=== PATIENT | female | born 1990 | race Caucasian/White ===

== ENCOUNTER 2017-10-04 08:26 | Inpatient (IN) | payer OTHER ==
--- NOTE | 2017-10-04 10:08 | PCM.LDHP ---
L&D History of Present Illness - General Admit Problem/Dx: Admission Diagnosis/Problem Admission Diagnosis/Problem 10/04/17 10:17 DATE OF ADMISSION: 10/04/2017 ADMISSION DIAGNOSES: A 39 and 0/7th week intrauterine , elective induction of labor HISTORY OF PRESENT ILLNESS: This patient is a 26 year old, 2, para 1-0-0-1 female who was admitted at 39 and 0/7ths weeks gestational age with an JENNIFER of 10/11/2017 for elective induction of labor. She lives in [place], [place] and desires induction secondary to distance from hospital and weather concerns. ONCOLOGIST HISTORY: 2, para 1-0-0-1. The patient has an JENNIFER of 10/11/2017 based on a definite LMP of 12/27/2016 and confirmed by early ultrasound dating performed at 9 weeks gestational age. Patient was not using any control at the time of conception and experienced regular periods prior to . A second ultrasound was performed on 06/07/2017 at 21 and 4/7ths weeks which was consistent with previously set JENNIFER. The patient was first seen for care on 03/08/2017 at 10 and 0/7ths weeks gestational age. She was seen on a regular basis throughout the duration of the . Her weight gain was approximately 34 pounds, starting with a pregravid weight of 199 pounds and with a recorded weight of 232.6 pounds at the last visit. Her vital signs have remained stable throughout the and fundal height growth has been appropriate. The patient declined genetic testing. She plans on . She is group B Strep negative. PAST OBSTETRIC HISTORY: Female infant born on 04/15/2017 at 39 and 4/7ths weeks gestational age after 11 hours of labor - 7 pounds, 3 ounces - via normal spontaneous vaginal delivery with the use of an epidural. Child's name is Cathie Ramos. LABORATORY TESTING: Initial testing shows blood to be B positive with a negative antibody screen. Hemoglobin at first visit was 15.0 g/dL and platelets at 278,000. Rubella titer showed immunity. RPR was nonreactive. HIV and Hepatitis B assays were both negative. Chlamydia and gonorrhea assays were both negative. Second trimester testing showed hemoglobin to be 12.8 g/dL and platelets at 292,000. Her 1 hour GGT was normal at 130. Group B Strep screen was negative. Urine analysis was negative. ALLERGIES: No known drug allergies CURRENT MEDICATIONS: 1. vitamins x1 daily 2. Niacin tablets 3. Folic acid capsules PAST MEDICAL HISTORY: 1. Vaginal delivery x1 2. GBS positive in previous 3. Seasonal allergies PAST SURGICAL HISTORY: 1. Tonsillectomy FAMILY HISTORY: Family history is negative aside from a sister with epilepsy and diabetes in a brother and maternal grandfather. No known family history of bleeding, clotting , anesthesia, or disorders. SOCIAL HISTORY: The patient is single. Father of the baby is Gabriella Palafox. They live in [place], [place]. 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 She does not use alcohol, drugs, or tobacco. REVIEW OF SYSTEMS: GENERAL: Patient is doing well. Baby has been active. No concerns at this time. SKIN: Negative. CARDIOVASCULAR: No chest pain or exercise intolerance. RESPIRATORY: No shortness of breath or infectious symptoms. BREASTS: Changes associated with . Patient plans to breastfeed. GASTROINTESTINAL: Negative. GENITOURINARY: Changes associated with . MUSCULOSKELETAL: Negative. NEUROLOGIC: Negative. PHYSICAL EXAMINATION: GENERAL: Patient is a well-developed, well-nourished, pleasant female who appears her stated age and in no acute distress. VITAL SIGNS: Blood pressure on last evaluation in the clinic was 124/72, weight was 232.6 after a weight gain of 34 pounds throughout the . heart rate was 144. Height is 5 feet, 11 inches. SKIN: Warm and dry without lesions. HEENT, NECK, BACK: Within normal limits. CARDIOVASCULAR: Regular rate and rhythm without murmurs. RESPIRATORY: Clear with good breath sounds in all lung stanley. BREASTS: Deferred at this time having been done at initial obstetric visit and found to be normal. ABDOMEN: Protuberant with with a fundal height of 36+ cm. Baby is in vertex presentation by Benji maneuvers. GENITAL: Shows cervix to be 2cm, 80% effaced, very soft, -2 station, and mid- posterior position. EXTREMITIES: Shows trace edema to be present at bilateral lower extremities. NEUROLOGIC: Grossly within normal limits. ASSESSMENT: 1. A 39 and 0/7ths week intrauterine who presents to L and D for elective induction of labor. 2. Rubella titer shows immunity. 3. Group B Strep screen is negative. 4. The patient plans to breastfeed. 5. The patient desires an epidural. PLAN: 1. Artificial rupture of membranes and Pitocin induction of labor. 2. Notify anesthesia for placement of epidural when desired by patient. 3. Support decision. 10/04/17 10:31 - Related Data Allergies/Adverse Reactions: Allergies Allergy/AdvReac Type Severity Reaction Status Date / Time No Known Allergies Allergy Verified 04/15/16 07:58 Home Medications: Home Meds Vit 90/Iron Fum/Folic [ Formula] 1 each PO DAILY 04/15/16 [ History] Past Medical History - Past Health History Medical/Surgical History: Denies Medical/Surgical History Other Respiratory History: hayfever- seasonal ONCOLOGIST History: Reports: - Past Surgical History HEENT Surgical History: Reports: Tonsillectomy Other HEENT Surgeries/Procedures: 2015 Respiratory Surgical History: Reports: None Social & Family History - Family History Family Medical History: Noncontributory - Tobacco Use Smoking Status *Q: Former Smoker Years of Tobacco use: 2 Used Tobacco, but Quit: Yes Month/Year Tobacco Last Used: May - Caffeine Use Caffeine Use: Reports: None - Recreational Drug Use Recreational Drug Use: No H&P Review of Systems - Review of Systems: Review Of Systems: See Below L&D Exam - Exam Exam: See Below - Vital Signs Vital Signs: Last Vital Signs Temp 96.5 F 10/04/17 09:12 Pulse 58 L 10/04/17 09:12 Resp 18 10/04/17 09:12 BP 112/64 10/04/17 09:12 Pulse Ox Problem List Initiated/Reviewed/Updated: Yes
[2017-10-04] MEDS ORDERED: Nalbuphine 20 MG/1 ML Amp IVPUSH PRN (10:21)
[2017-10-04] MEDS ORDERED: Ondansetron 4 MG/2 ML SDV IVPUSH PRN (10:21)
[2017-10-04] MEDS ORDERED: Sodium Chloride 0.9% 10 ML Syringe FLUSH PRN (10:21)
[2017-10-04] MEDS ORDERED: Lidocaine 1% 50 ML MDV INJECT ONE (10:21)
[2017-10-04] MEDS ORDERED: Oxytocin/Lactated Ringers 10 UNIT/1,000 ML BAG IV SCH (10:30)
[2017-10-04] MEDS ORDERED: ePHEDrine 50 MG/ML SDV IVPUSH PRN (12:29)
[2017-10-04] MEDS ORDERED: diphenhydrAMINE 50 MG/ML SDV IVPUSH PRN (12:29)
[2017-10-04] MEDS ORDERED: Bupivacaine/fentaNYL/NS 100 ML Bag EPIDUR SCH (12:30)
[2017-10-04] MEDS: Lactated Ringers 1,000 ML IV SCH ×3 (12:53→18:21)
[2017-10-04] MEDS: fentaNYL 100 MCG/2 ML SDV EPIDUR PRN ×2 (13:38→19:57)
--- NOTE | 2017-10-04 13:44 | PCM.PREANE ---
Preanesthetic Assessment - Anesthesia/Transfusion/Family Hx Anesthesia History: Prior Anesthesia Without Reaction Family History of Anesthesia Reaction: No Transfusion History: No Prior Transfusion(s) - Review of Systems General: No Symptoms Pulmonary: No Symptoms Cardiovascular: No Symptoms Gastrointestinal: No Symptoms Neurological: No Symptoms Other: Reports: None - Physical Assessment Pulse: 63 O2 Sat by Pulse Oximetry: 97 Respiratory Rate: 18 Blood Pressure: 113/72 Temperature: 36.3 C Vital Signs: Last Vital Signs Temp 35.8 C 10/04/17 09:12 Pulse 63 10/04/17 11:09 Resp 18 10/04/17 09:12 BP 113/72 10/04/17 11:09 Pulse Ox Height: 1.8 m Weight: 106.141 kg ASA Class: 2 Mental Status: Alert & Oriented x3 Airway Class: Mallampati = 1 Dentition: Reports: Normal Dentition Thyro-Mental Finger Breadths: 3 Mouth Opening Finger Breadths: 3 ROM/Head Extension: Full Lungs: Clear to Auscultation, Normal Respiratory Effort Cardiovascular: Regular Rate, Regular Rhythm - Lab Values: Laboratory Last Values WBC 8.94 K/mm3 (3.98-10.04) 10/04/17 10:40 RBC 3.84 M/mm3 (3.98-5.22) L 10/04/17 10:40 Hgb 12.5 gm/L (11.2-15.7) 10/04/17 10:40 Hct 36.1 % (34.1-44.9) 10/04/17 10:40 MCV 94.0 fl (79.4-94.8) 10/04/17 10:40 MCH 32.6 pg (25.6-32.2) H 10/04/17 10:40 MCHC 34.6 g/dl (32.2-35.5) 10/04/17 10:40 RDW Std Deviation 41.8 fL (36.4-46.3) 10/04/17 10:40 Plt Count 261 K/mm3 (182-369) 10/04/17 10:40 MPV 10.6 fl (9.4-12.3) 10/04/17 10:40 Neut % (Auto) 66.7 % (34.0-71.1) 10/04/17 10:40 Lymph % (Auto) 23.0 % (19.3-51.7) 10/04/17 10:40 [place] % (Auto) 7.6 % (4.7-12.5) 10/04/17 10:40 Eos % (Auto) 2.3 (0.7-5.8) 10/04/17 10:40 Baso % (Auto) 0.2 % (0.1-1.2) 10/04/17 10:40 Neut # (Auto) 5.95 K/mm3 (1.56-6.13) 10/04/17 10:40 Lymph # (Auto) 2.06 K/mm3 (1.18-3.74) 10/04/17 10:40 [place] # (Auto) 0.68 K/mm3 (0.24-0.36) H 10/04/17 10:40 Eos # (Auto) 0.21 K/mm3 (0.04-0.36) 10/04/17 10:40 Baso # (Auto) 0.02 K/mm3 (0.01-0.08) 10/04/17 10:40 - Allergies Allergies/Adverse Reactions: Allergies Allergy/AdvReac Type Severity Reaction Status Date / Time No Known Allergies Allergy Verified 04/15/16 07:58 - Anesthesia Plan Pre-Op Medication Ordered: None - Acknowledgements Anesthesia Type Planned: Epidural Pt an Appropriate Candidate for the Planned Anesthesia: Yes Alternatives and Risks of Anesthesia Discussed w Pt/Guardian: Yes Pt/Guardian Understands and Agrees with Anesthesia Plan: Yes PreAnesthesia Questionnaire - Past Health History Medical/Surgical History: Denies Medical/Surgical History Other Respiratory History: hayfever- seasonal Gastrointestinal History: Reports: GERD 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 History: Reports: - Past Surgical History HEENT Surgical History: Reports: Tonsillectomy Other HEENT Surgeries/Procedures: 2015 Respiratory Surgical History: Reports: None - SUBSTANCE USE Smoking Status *Q: Former Smoker Second Hand Smoke Exposure: No Recreational Drug Use History: No - HOME MEDS Home Medications: Home Meds Vit 90/Iron Fum/Folic [ Formula] 1 each PO DAILY 04/15/16 [ History] - CURRENT (IN HOUSE) MEDS Current Meds: Current Medications Diphenhydramine HCl (Benadryl) 25 mg IVPUSH Q6H PRN PRN Reason: Itching Ephedrine Sulfate (Ephedrine Sulfate) 5 mg IVPUSH ASDIRECTED PRN PRN Reason: HYPOTENTSION Fentanyl (Sublimaze) 100 mcg EPIDUR Q3H PRN PRN Reason: PAIN Last Admin: 10/04/17 13:38 Dose: 100 mcg Fentanyl/Bupivacaine HCl (Fentanyl/Bupivacaine/Ns 2 Mcg-0.125% 100 Ml) 100 ml EPIDUR ASDIRECTED ANOOP Lactated Ringer's (Ringers, Lactated) 1,000 mls @ 100 mls/hr IV ASDIRECTED ANOOP Last Admin: 10/04/17 12:53 Dose: 999 mls/hr Oxytocin/Lactated Ringer's (Pitocin In Lr 10 Units/1,000 Ml) 10 unit in 1,000 mls @ 12 mls/hr IV TITRATE ANOOP; Protocol Last Admin: 10/04/17 12:54 Dose: 2 munits/min, 12 mls/hr Nalbuphine HCl (Nubain) 10 mg IVPUSH Q2H PRN PRN Reason: Pain (moderate 4-6) Ondansetron HCl (Zofran) 4 mg IVPUSH Q4H PRN PRN Reason: Nausea/Vomiting Sodium Chloride (Saline Flush) 10 ml FLUSH ASDIRECTED PRN PRN Reason: Keep Vein Open Discontinued Medications Lidocaine HCl (Xylocaine 1%) 10 ml INJECT ONETIME ONE Stop: 10/04/17 10:22
[2017-10-04] MEDS ORDERED: Bupivacaine 0.25% 10 ML SDV ONE (16:00)
[2017-10-04] MEDS ORDERED: fentaNYL/Bupivacaine in NS PF 2.5 MCG/ML-0.1% 50 ML Syringe EPIDUR SCH (16:45)
--- NOTE | 2017-10-04 19:55 | PCM.SN ---
- Free Text/Narrative Note: 1932 called to room for c/o pain. Epidural level at T11. Bolus with 2ml of fentanyl, 10ml of .25% bupivacaine VSS epidural level at T6 out of room at 1954
--- NOTE | 2017-10-04 20:47 | PCM.SN ---
- Free Text/Narrative Note: Delivery note: Madie is a 26-year-old 2 now para 2002 white female who is admitted on the a.m. of 10/04/2017 for elective induction of labor for distance from the hospital and multiparous status. Nation and underwent official rupture membranes induction initially. After short period time Pitocin was added to facilitate an adequate labor. She slowly progressed and delivered a viable, morris, male with Apgars of 8 and 9, a length of 19.5 inches , a weight of 2960 g (6 pounds 8.4 ounces) in a right occiput anterior position over an intact perineum. The baby delivered at 2021 hrs. baby was placed on mom' s abdomen, cord clamped 2 and cut by the dad. Nose mouth bulb suction. Baby was dried and stimulated. Pitocin was given IV after the baby to facilitate increase in uterine tone and decrease likelihood of uterine bleeding. Cord blood was obtained, the perineum was found to be intact. Very slight very superficial abrasion was noted in the area anterior to the clitoris. This did not show any evidence of anatomic distortion or significant bleeding. No sutures were placed. The placenta delivered in a [place] presentation, appeared intact, complete and was discarded per patient desire. Blood loss was 100 mL. Patient plans to breast-feed. Condition: Good
[2017-10-04] MEDS ORDERED: Docusate Sodium 100 MG Cap PO PRN (20:57)
[2017-10-04] MEDS ORDERED: Lanolin 100% Cream 7 GM Tube TOP PRN (20:57)
[2017-10-04] MEDS ORDERED: Acetaminophen 325 MG Tab PO PRN (20:57)
[2017-10-04] MEDS ORDERED: Benzocaine/Menthol 20%-0.5% Spray 56 GM Canister TOP PRN (20:57)
[2017-10-04] MEDS ORDERED: Witch Hazel Medicated Pads 100/Jar TOP PRN (20:57)
[2017-10-05] MEDS: Ibuprofen 600 MG Tab PO PRN ×3 (04:42→20:12)
--- NOTE | 2017-10-05 09:44 | PCM48HPAN ---
Post Anesthesia Note - EVALUATION WITHIN 48HRS OF ANESTHETIC Vital Signs in Normal Range: Yes Patient Participated in Evaluation: Yes Respiratory Function Stable: Yes Airway Patent: Yes Cardiovascular Function Stable: Yes Hydration Status Stable: Yes Pain Control Satisfactory: Yes Nausea and Vomiting Control Satisfactory: Yes Mental Status Recovered: Yes Pulse Rate: 65 Resp Rate: 16 Temperature: 97.7 F Blood Pressure: 116/60
[2017-10-06 05:37] VITALS: BP 124/67
--- NOTE | 2017-10-06 06:25 | PCM.DCSUM1 ---
Discharge Summary - Hospital Course Free Text/Narrative:: Madie is a 26-year-old 2 now para 2002 white female who is admitted on the a.m. of 10/04/2017 for elective induction of labor for distance from the hospital and multiparous status. Nation and underwent official rupture membranes induction initially. After short period time Pitocin was added to facilitate an adequate labor. She slowly progressed and delivered a viable, morris, male with Apgars of 8 and 9, a length of 19.5 inches, a weight of 2960 g (6 pounds 8.4 ounces) in a right occiput anterior position over an intact perineum. The baby delivered at 2021 hrs. baby was placed on mom' s abdomen, cord clamped 2 and cut by the dad. Nose mouth bulb suction. Baby was dried and stimulated. Pitocin was given IV after the baby to facilitate increase in uterine tone and decrease likelihood of uterine bleeding. Cord blood was obtained, the perineum was found to be intact. Very slight very superficial abrasion was noted in the area anterior to the clitoris. This did not show any evidence of anatomic distortion or significant bleeding. No sutures were placed. The placenta delivered in a [place] presentation, appeared intact, complete and was discarded per patient desire. Blood loss was 100 mL. Patient plans to breast-feed. patient has done well. She has had minimal lochia, is voiding without concerns and is nursing well. She is desiring discharge home. Condition : Good - Discharge Data Discharge Date: 10/06/17 Discharge Disposition: Home, Self-Care 01 Condition: Good - Patient Instructions Diet: Regular Diet as Tolerated (Nursing diet was increased calcium and calories as recommended) Activity: As Tolerated (No intercourse or tampons until bleeding resolves) Driving: Do Not Drive (Do not drive for 2 days ) Showering/Bathing: May Shower (May take a bath) Notify Provider of: Fever, Increased Pain, Swelling and Redness, Nausea and/or Vomiting - Discharge Plan Home Medications: Home Meds Vit 90/Iron Fum/Folic [ Formula] 1 each PO DAILY 04/15/16 [ History] Acetaminophen [Tylenol] 650 mg PO Q4H PRN tablet 10/06/17 [Rx] Ibuprofen [IJD: Ibuprofen] 600 mg PO Q4H PRN tablet 10/06/17 [Rx] Referrals: Aleks Moya MD [Primary Care Provider] - (Return to clinicDr. Moya2 weeks.) - Discharge Summary/Plan Comment DC Time >30 min.: No Discharge Summary/Plan Comment: Discharge instructions: 1. Discharge home 2. Diet, activity and follow-up discussed with patient. Recommend nursing diet with increased calories and calcium. 3. Precautions given concern increased pain, bleeding, temperature, signs/ symptoms of DVT/PE. 4. Medications per home medication was printed, discussed with and given to the patient. 5. Return to clinic-Dr. Moya[facility] in 2 weeks. Diagnosis: Term -delivered Condition: Good - Patient Data Vitals - Most Recent: Last Vital Signs Temp 36.3 C 10/06/17 05:00 Pulse 67 10/05/17 20:00 Resp 16 10/06/17 05:00 BP 124/67 10/06/17 05:00 Pulse Ox 97 10/06/17 05:00 Weight - Most Recent: 106.141 kg I&O - Last 24 hours: Intake & Output 10/05/17 10/05/17 10/06/17 14:59 22:59 06:59 Intake Total 180 Balance 180 Lab Results - Last 24 hrs: Laboratory Results - last 24 hr 10/05/17 Range/Units 05:50 WBC 10.41 H (3.98-10.04) K/mm3 RBC 3.58 L (3.98-5.22) M/mm3 Hgb 11.6 (11.2-15.7) gm/L Hct 33.9 L (34.1-44.9) % MCV 94.7 (79.4-94.8) fl MCH 32.4 H (25.6-32.2) pg MCHC 34.2 (32.2-35.5) g/dl RDW Std Deviation 42.1 (36.4-46.3) fL Plt Count 211 (182-369) K/mm3 MPV 11.4 (9.4-12.3) fl Med Orders - Current: Current Medications Acetaminophen (Tylenol) 650 mg PO Q4H PRN PRN Reason: mild pain or fever Benzocaine/Menthol (Dermoplast Pain Relief [place]) 0 gm TOP ASDIRECTED PRN PRN Reason: Perineal Comfort Measure Last Admin: 10/04/17 23:05 Dose: 1 can Docusate Sodium (Colace) 100 mg PO BID PRN PRN Reason: Constipation Emollient Ointment (Lansinoh Hpa) 0 gm TOP ASDIRECTED PRN PRN Reason: Sore Nipples Ibuprofen (Motrin) 600 mg PO Q4H PRN PRN Reason: Mild pain or fever Last Admin: 10/05/17 20:12 Dose: 600 mg Witch Minda (Tucks) 1 pad TOP ASDIRECTED PRN PRN Reason: Hemorrhoid pain Last Admin: 10/04/17 23:05 Dose: 1 jar Discontinued Medications Diphenhydramine HCl (Benadryl) 25 mg IVPUSH Q6H PRN PRN Reason: Itching Ephedrine Sulfate (Ephedrine Sulfate) 5 mg IVPUSH ASDIRECTED PRN PRN Reason: HYPOTENTSION Fentanyl (Sublimaze) 100 mcg EPIDUR Q3H PRN PRN Reason: PAIN Last Admin: 10/04/17 19:57 Dose: 100 mcg Fentanyl/Bupivacaine HCl (Fentanyl/Bupivacaine/Ns 2 Mcg-0.125% 100 Ml) 100 ml EPIDUR ASDIRECTED ANOOP Fentanyl/Bupivacaine HCl (Fentanyl/Bupivacaine/Ns 2.5 Mcg-0.1% 50 Ml) 50 ml EPIDUR ASDIRECTED ANOOP Lactated Ringer's (Ringers, Lactated) 1,000 mls @ 100 mls/hr IV ASDIRECTED ANOOP Last Admin: 10/04/17 18:21 Dose: 125 mls/hr Oxytocin/Lactated Ringer's (Pitocin In Lr 10 Units/1,000 Ml) 10 unit in 1,000 mls @ 12 mls/hr IV TITRATE ANOOP; Protocol Last Titration: 10/04/17 18:40 Dose: 18 munits/min, 108 mls/hr Lidocaine HCl (Xylocaine 1%) 10 ml INJECT ONETIME ONE Stop: 10/04/17 10:22 Nalbuphine HCl (Nubain) 10 mg IVPUSH Q2H PRN PRN Reason: Pain (moderate 4-6) Ondansetron HCl (Zofran) 4 mg IVPUSH Q4H PRN PRN Reason: Nausea/Vomiting Sodium Chloride (Saline Flush) 10 ml FLUSH ASDIRECTED PRN PRN Reason: Keep Vein Open
[2017-10-06] MEDS: Ibuprofen 600 MG Tab PO PRN (08:51)
== END 2017-10-06 12:30 | disposition home or self-care (01) | DRG 775 ==
LOC: UNDOADMOB 08:26 → JD.OB 08:26 → OBSVTOIN 20:22 → JD.OB 20:25
PROVIDERS: ADMIT Obstetrics & Gynecology; ATTEND Obstetrics & Gynecology
PROC: 10E0XZZ Delivery of Products of Conception, External Approach (ICD-10-PCS; principal; 2017-10-04)
PROC: 10907ZC Drainage of Amniotic Fluid, Therapeutic from Products of Conception, Via Natural or Artificial Opening (ICD-10-PCS; 2017-10-04)
PROC: 3E033VJ Introduction of Other Hormone into Peripheral Vein, Percutaneous Approach (ICD-10-PCS; 2017-10-04)
PROC: 6A550ZT Pheresis of Cord Blood Stem Cells, Single (ICD-10-PCS; 2017-10-04)
PROC: 00HU33Z Insertion of Infusion Device into Spinal Canal, Percutaneous Approach (ICD-10-PCS; 2017-10-04)
PROC: 3E0R3BZ Introduction of Anesthetic Agent into Spinal Canal, Percutaneous Approach (ICD-10-PCS; 2017-10-04)
DX: O80 Encounter for full-term uncomplicated delivery (principal); Z3A.39 39 weeks gestation of pregnancy; Z37.0 Single live birth
CPT/HCPCS: 36415; 51702; 59025; 59409; 85025; 85027; A9270-GY; J2590; J3010; J7120

== ENCOUNTER 2021-01-06 09:51 | Inpatient (IN) | payer BC ==
--- NOTE | 2021-01-06 09:35 | PCM.LDHP ---
L&D History of Present Illness - General Date of Service: 01/06/21 Admit Problem/Dx: Admission Diagnosis/Problem Admission Diagnosis/Problem 01/06/21 09:26 Madie is a 30-year-old 4 para 3-0-0-3 female presently at 39-3/7 weeks gestational age with an JENNIFER of 01/10/2021 admitted on the a.m. of 01/06/2021 for induction of labor. Source of Information: Patient History Limitations: Reports: No Limitations - History of Present Illness Introduction:: Madie is a 30-year-old 4 para 3-0-0-3 female presently at 39-3/7 weeks gestational age with an JENNIFER of 01/10/2021 admitted on the a.m. of 01/06/2021 for induction of labor. The procedure and process of induction of labor, its risk, benefits, limitations and follow-up along with alternatives including allowing for natural onset of labor are all discussed in detail with patient. She appears understand and wishes to proceed. TEAM MEMBER history: Madie is a 4 para 3-0-0-3. She had menarche at approximately age 11. Cycles q. 28 days. Her last menstrual period was certain and started on 04/05/2020. She is not using any control at the time of conception. She has no history of abnormal Pap smears or STIs. Her past obstetric history includes the followin. Female infant born 1020 2015-39-4/7 weeks gestational age11 hours of labor7 pounds 3 [facility]NS[facility] name [facility] Blanche Ramos 2. Male infant born 10/04/2018 at 39 weeks gestational age6 pounds 8 [facility]NS[facility]. Male born 01/25/2001 19-40-1/7 weeks gestational age8 hours of labor8 pounds 6 ouncesNSVDepidural [facility] Maytechild's name is Isauro Pratt course: Patient is seen for first visit at 11 weeks and 3 days. She had an ultrasound earlier than that on 05/26/2020 which placed her at 7 weeks and 4 days which is consistent with her LMP dating. She had 2 other ultrasounds during the course of at 12 and 22 weeks and these were correlated with her LMP and first ultrasound dating well. She was seen on a very regular basis during the course of the . Her weight gain was from 210.6 pounds up to 240.3 pounds for approximately a 30 pound increase. Her vital signs remained stable throughout the coursespecifically blood pressure was unremarkable. Fundal height growth was appropriate with last fundal height on 12/31/2020 at 40 cm. Baby in vertex presentation. Patient is rubella immune. She had her hepatitis B immunizations in 2002 and her meningococcal immunizations in 2006. Patient plans to breast-feed. Prequel done early in was negative. [place] depression screen score on 09/30/2020 was 7/30. She is group B strep negative. She desires an epidural in labor. Laboratory testing : Blood is be positive with a negative antibody screen. First hemoglobin is 14.0 g/dL and platelets are 292,000. Her Pap smear is unremarkable. She is rubella immune. RPR is nonreactive. Urine culture was negative. Hepatitis B surface antigen and HIV assays along with chl amydia and gonorrhea tests were negative. Her HCV antibody was also negative. Second trimester labs showed a hemoglobin of 12.1 g/dL and platelets of 266,000. Her 1 hour GTT was normal at 121. RPR done on 09/30/2020 was negative. Group B strep screen is negative. Allergies: None Medications: 1. vitamins daily 2. Folic acid caps daily Past medical history: 1. x4 2. Environmental allergies Past surgical history: 1. Tonsillectomy Family history: Mother is alive at age 53 and is well. Father is alive and well at age 55. 2 brothers one with type 1 diabetes 1 healthy. The other sibling is a sister with a seizure disorder. No , clotting, bleeding, anesthesia problems noted. 1 sister did have twins that delivered at age 30 weeks gestation. Mother does have hyperthyroidism and 1 sister with hyperthyroidism. Social history: Patient is single. 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 She lives in [place], [place]. Her significant other is Gabriella Jaime. She does not use any significance alcohol, drugs or tobacco. Review of systems: In general patient has no complaints. Patient reports good activity. No significant contractions. Skin: Negative Lungs: No infectious symptoms or shortness of breath Cardiovascular: No chest pain or exercise intolerance Breasts: No lumps, changes in size, pain, dimpling, discharge or axillary or supraclavicular concerns. GI: Negative : Body habitus changes consistent with . Musculoskeletal: Negative Neurological: Negative Physical exam: In general the patient is well-developed, well-nourished, pleasant female of stated age in no acute distress. On last evaluation clinic on 12/31/2020 blood pressure was 122/72. Weight was 240.3 pounds. First weight was 210.6 pounds. Height is 5 feet 11. Body mass index is 27.9. Skin is warm dry without lesions. HEENT, neck and back within normal limits. Lungs are clear with good breath sounds in all lung stanley. Cardiovascular exam shows regular and rhythm without murmurs. Breast exam is deferred at this time having been done at first cally visit and found to be normal is not repeated at this point. Patient does plan to breast- feed. Abdomen is gravid with last fundal height at last visit at 40 cm. Baby in vertex presentation. Genital per digital evaluation on the last check in clinic showed cervix to be a tight 2 cm, 50% effaced, soft, -3 station, mid position. Extremities and neurological exam are grossly within normal limits. - Related Data Allergies/Adverse Reactions: Allergies Allergy/AdvReac Type Severity Reaction Status Date / Time No Known Allergies Allergy Verified 04/15/16 07:58 Home Medications: Home Meds Vit 90/Iron Fum/Folic [ Formula] 1 each PO DAILY 04/15/16 [History] Acetaminophen [Tylenol] 650 mg PO Q4H PRN tablet 01/25/19 [Rx] Ibuprofen [Motrin] 600 mg PO Q4H PRN tablet 01/25/19 [Rx] Past Medical History - Past Health History Medical/Surgical History: Denies Medical/Surgical History HEENT History: Reports: Allergic Rhinitis Other Respiratory History: hayfever- seasonal Gastrointestinal History: Reports: GERD TEAM MEMBER History: Reports: - Past Surgical History HEENT Surgical History: Reports: Tonsillectomy Other HEENT Surgeries/Procedures: 2015 Respiratory Surgical History: Reports: None Social & Family History - Family History Family Medical History: No Pertinent Family History - Caffeine Use Caffeine Use: Reports: None H&P Review of Systems - Review of Systems: Review Of Systems: See Below L&D Exam - Exam Exam: See Below - Problem List (1) 39 weeks gestation of SNOMED Code(s): 00463095 ICD Code: Z3A.39 - 39 WEEKS GESTATION OF Status: Acute Problem List Initiated/Reviewed/Updated: Yes Assessment/Plan Comment:: 1Oksana Ramachandran is a 30-year-old 4 para 3-0-0-3 female presently at 39-3/7 weeks gestational age with an JENNIFER of 01/10/2021 admitted on the a.m. of 01/06/2021 for induction of labor. 2. Group B strep negative 3. Patient plans to breast-feed 4. Desires epidural in labor delivery 5. Patient is rubella immune. 6. Risk factors for the include distance from the hospital. Plan: 1. Pitocin induction of labor with artificial rupture of membranes augmentation. Discussed with patient detail. She is in agreement to proceed with plan. 2. Support breast-feeding decision 3. Epidural per patient desire in labor delivery 4. Admission laboratory testing consist of CBC, COVID-19, RPR per protocol.
[2021-01-06] MEDS ORDERED: Sodium Chloride 0.9% 10 ML Syringe FLUSH PRN (09:55)
[2021-01-06] MEDS ORDERED: Calcium Carbonate 500 MG Tab.Chew PO PRN (09:55)
[2021-01-06] MEDS ORDERED: Nalbuphine 10 MG/1 ML Vial IVPUSH PRN (09:55)
[2021-01-06] MEDS ORDERED: Ondansetron 4 MG/2 ML SDV IVPUSH PRN (09:55)
[2021-01-06] MEDS ORDERED: Oxytocin/Lactated Ringers 10 UNIT/1,000 ML BAG IV SCH ×2 (10:00)
[2021-01-06] MEDS ORDERED: diphenhydrAMINE 50 MG/ML SDV IVPUSH PRN (11:32)
[2021-01-06] MEDS ORDERED: Bupivacaine/fentaNYL/NS 100 ML Bag EPIDUR PRN (11:32)
[2021-01-06] MEDS ORDERED: ePHEDrine 50 MG/ML SDV IVPUSH PRN (11:32)
[2021-01-06] MEDS ORDERED: fentaNYL 100 MCG/2 ML SDV EPIDUR PRN (11:32)
[2021-01-06] MEDS: Lactated Ringers 1,000 ML IV SCH ×2 (14:16→18:18)
--- NOTE | 2021-01-06 14:31 | PCM.PREANE ---
Preanesthetic Assessment - Procedure Proposed Procedure: rakan - Anesthesia/Transfusion/Family Hx Anesthesia History: Prior Anesthesia Without Reaction Family History of Anesthesia Reaction: No Transfusion History: No Prior Transfusion(s) Type of Transfusion Reactions: Reports: Unknown Intubation History: Unknown - Review of Systems General: No Symptoms Pulmonary: No Symptoms Cardiovascular: No Symptoms Gastrointestinal: No Symptoms Neurological: No Symptoms Other: Reports: None - Physical Assessment Vital Signs: Last Vital Signs Temp 97.9 F 01/06/21 10:23 Pulse 69 01/06/21 10:23 Resp 16 01/06/21 10:23 BP 119/71 01/06/21 10:23 Pulse Ox 99 01/06/21 10:23 Height: 5 ft 11 in Weight: 113.852 kg ASA Class: 2 Mental Status: Alert & Oriented x3 Airway Class: Mallampati = 1 Dentition: Reports: Normal Dentition Thyro-Mental Finger Breadths: 3 Mouth Opening Finger Breadths: 3 ROM/Head Extension: Full Lungs: Clear to Auscultation, Normal Respiratory Effort Cardiovascular: Regular Rate, Regular Rhythm - Lab Values: Laboratory Last Values WBC 8.37 K/mm3 (3.98-10.04) 01/06/21 10:12 RBC 3.81 M/mm3 (3.98-5.22) L 01/06/21 10:12 Hgb 12.0 gm/dl (11.2-15.7) 01/06/21 10:12 Hct 35.6 % (34.1-44.9) 01/06/21 10:12 MCV 93.4 fl (79.4-94.8) 01/06/21 10:12 MCH 31.5 pg (25.6-32.2) 01/06/21 10:12 MCHC 33.7 g/dl (32.2-35.5) 01/06/21 10:12 RDW Std Deviation 41.1 fL (36.4-46.3) 01/06/21 10:12 Plt Count 215 K/mm3 (182-369) 01/06/21 10:12 MPV 11.7 fl (9.4-12.3) 01/06/21 10:12 Neut % (Auto) 69.6 % (34.0-71.1) 01/06/21 10:12 Lymph % (Auto) 20.5 % (19.3-51.7) 01/06/21 10:12 [place] % (Auto) 7.3 % (4.7-12.5) 01/06/21 10:12 Eos % (Auto) 2.0 (0.7-5.8) 01/06/21 10:12 Baso % (Auto) 0.2 % (0.1-1.2) 01/06/21 10:12 Neut # (Auto) 5.82 K/mm3 (1.56-6.13) 01/06/21 10:12 Lymph # (Auto) 1.72 K/mm3 (1.18-3.74) 01/06/21 10:12 [place] # (Auto) 0.61 K/mm3 (0.24-0.36) H 01/06/21 10:12 Eos # (Auto) 0.17 K/mm3 (0.04-0.36) 01/06/21 10:12 Baso # (Auto) 0.02 K/mm3 (0.01-0.08) 01/06/21 10:12 SARS-CoV-2 RNA (GO) Negative (NEGATIVE) 01/06/21 10:15 - Allergies Allergies/Adverse Reactions: Allergies Allergy/AdvReac Type Severity Reaction Status Date / Time No Known Allergies Allergy Verified 01/06/21 10:08 - Blood Blood Available: No - Acknowledgements Anesthesia Type Planned: Epidural Pt an Appropriate Candidate for the Planned Anesthesia: Yes Alternatives and Risks of Anesthesia Discussed w Pt/Guardian: Yes Pt/Guardian Understands and Agrees with Anesthesia Plan: Yes PreAnesthesia Questionnaire - Past Health History Medical/Surgical History: Denies Medical/Surgical History HEENT History: Reports: Allergic Rhinitis Cardiovascular History: Reports: None Respiratory History: Reports: None Other Respiratory History: hayfever- seasonal Gastrointestinal History: Reports: GERD 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 Psychiatric History: Reports: None Endocrine/Metabolic History: Reports: Obesity/BMI 30+ Oncologic (Cancer) History: Reports: None - Past Surgical History HEENT Surgical History: Reports: Tonsillectomy Other HEENT Surgeries/Procedures: 2014 Respiratory Surgical History: Reports: None GI Surgical History: Reports: None - SUBSTANCE USE Tobacco Use Status *Q: Former Tobacco User Tobacco Use Within Last Twelve Months: Cigarettes Second Hand Smoke Exposure: Yes Days Per Week of Alcohol Use: 0 Recreational Drug Use History: No - HOME MEDS Home Medications: Home Meds Vit 90/Iron Fum/Folic [ Formula] 1 each PO DAILY 04/15/16 [History] Folic Acid 1 cap PO DAILY 01/06/21 [History] - CURRENT (IN HOUSE) MEDS Current Meds: Current Medications Calcium Carbonate/Glycine (Calcium Carbonate 500 Mg Tab.Chew) 1,000 mg PO Q2H PRN PRN Reason: Indigestion Diphenhydramine HCl (Diphenhydramine 50 Mg/Ml Sdv) 25 mg IVPUSH Q6H PRN PRN Reason: pruritis Ephedrine Sulfate (Ephedrine 50 Mg/Ml Sdv) 5 mg IVPUSH ASDIRECTED PRN PRN Reason: Hypotension Fentanyl (Fentanyl 100 Mcg/2 Ml Sdv) 100 mcg EPIDUR Q3H PRN PRN Reason: Pain Fentanyl/Bupivacaine HCl (Bupivacaine/Fentanyl/Ns 100 Ml Bag) 100 ml EPIDUR ASDIRECTED PRN PRN Reason: Pain Oxytocin/Lactated Ringer's (Pitocin In Lr 10 Units/1,000 Ml) 10 unit in 1,000 mls @ 12 mls/hr IV TITRATE ANOOP; Protocol Last Admin: 01/06/21 14:16 Dose: 2 munits/min, 12 mls/hr Documented by: Oxytocin/Lactated Ringer's (Pitocin In Lr 10 Units/1,000 Ml) 10 unit in 1,000 mls @ 100 mls/hr IV .CONTINUOUS ANOOP Lactated Ringer's (Ringers, Lactated) 1,000 mls @ 100 mls/hr IV ASDIRECTED ANOOP Last Admin: 01/06/21 14:16 Dose: 100 mls/hr Documented by: Nalbuphine HCl (Nalbuphine 10 Mg/1 Ml Vial) 10 mg IVPUSH Q2H PRN PRN Reason: Pain Ondansetron HCl (Ondansetron 4 Mg/2 Ml Sdv) 4 mg IVPUSH Q4H PRN PRN Reason: Nausea/Vomiting Sodium Chloride (Sodium Chloride 0.9% 10 Ml Syringe) 10 ml FLUSH ASDIRECTED PRN PRN Reason: Keep Vein Open
[2021-01-06] MEDS ORDERED: Bupivacaine 0.25% 10 ML SDV ONE (17:00)
--- NOTE | 2021-01-06 20:03 | PCM.SN.2 ---
- Free Text/Narrative Note: Labor and delivery summary: Stage I: Madie is a 30-year-old 4 para 3-0-0-3 female presently at 39- 3/7 weeks gestational age with an JENNIFER of 01/10/2021 admitted on the a.m. of 01/06/2021 for induction of labor. She underwent Pitocin induction of labor followed by AROM with resultant clear amniotic fluid shortly thereafter. She underwent epidural for labor analgesia with good results. She relatively quickly proceeded to complete cervical dilation by approximately 1930 hrs. heart tones were generally reassuring. Contraction pattern was excellent. Stage II: Madie delivered a viable, morris, male infant named Easton Christine at 1931 hrs. on 01/06/2021 in a direct occiput anterior position over an intact perineum using gentle downward and then upward traction to deliver the shoulders. She delivered in less than 1 contraction. The baby weighed 4280 g (9 pounds 7 ounces), had Apgars of 8 and 9 and a length of 21.5 inches. He was placed on the mom's abdomen and dried with warm blanket. Nose and mouth were bulb suction. Upon delivery of the baby the Pitocin was increased to 500 cc/h u sing the routine solution of 10 units/L. This to increase uterine tone and decrease likelihood of uterine bleeding. The umbilical cord was allowed to pulsate for approximately 3 minutes and was clamped x2 and cut by the baby's father Gabriella. Three-vessel umbilical cord. Cord blood was obtained. Stage III: The placenta delivered at 1935 hrs. It was delivered in a [place] presentation, appeared intact and complete and was discarded per patient desire. She had approximately 100 cc EBL. She plans to breast-feed. Condition: Good.
[2021-01-06] MEDS ORDERED: Acetaminophen 325 MG Tab PO PRN (20:21)
[2021-01-06] MEDS ORDERED: Benzocaine/Menthol 20%-0.5% Spray 56 GM Canister TOP PRN (20:21)
[2021-01-06] MEDS ORDERED: Witch Hazel Medicated Pads 40/Jar TOP PRN (20:21)
[2021-01-06] MEDS: Docusate Sodium 100 MG Cap PO PRN (21:24)
[2021-01-06] MEDS: Ibuprofen 600 MG Tab PO PRN (21:24)
[2021-01-06] MEDS ORDERED: Misoprostol 200 MCG Tab ONE (23:31)
[2021-01-07] MEDS ORDERED: Misoprostol 200 MCG Tab SCH
--- NOTE | 2021-01-07 00:25 | PCM.SN.2 ---
- Free Text/Narrative Note: progress note: I was called at approximately 2325 hrs. on 01/06/2021 for complaints of increased uterine bleeding. Uterus is at the umbilicus. Patient was reported to have passed several clots that were fist size. Estimated blood loss at that time was 1200 cc. Cytotec 600 mcg orally every 4 hours x 3 doses was ordered. At approximately 2350 hrs. was called back given that patient had passed another several hundred cc clot. At that time is estimated she had a total of 1500 that had been passed since the time of delivery. On my clinical evaluation her vital signs are stable. Patient is afebrile. Uterus is at 2 cm below the umbilicus and firm on upon initial evaluation. The patient's uterus is soft and nontender. No evidence of hematomas. Speculum and bimanual exam of the vagina and uterus shows normal external genitalia. There is no evidence of perineal or vaginal lacerations on speculum exam. Cervix is dilated 2 to 3 cmnormal for the new . Uterus is firm, no evidence of inverted uterus. No evidence of laceration of the cervix. Bleeding it appears is coming from the cervical os, therefore felt to be of uterine origin. Patient is evaluated with labs including CBC which showed hemoglobin to be 10.3, hematocrit 31.1, white blood count 12.5 and platelets at 202,000. She is also typed and crossmatched for 2 units of packed red blood cells the time that the CBC was ordered. PT PTT and INR ordered and have returned normal. Patient was monitored for the next hour at which time she passed just a small dime size clot and had slightly increased flow. Uterus remained firm. She had been given in edition Methergine 0.2 mg IM x1 dose. It appeared that the bleeding was from uterine atony. It appeared to be under good control with the Cytotec and Methergine therapy. Assessment: 1. Status post delivery with increased uterine bleeding felt to be secondary to uterine atony. Now under reasonably good control with Cytotec and Methergine therapy. Plan: 1. We will continue Cytotec x2 more doses. Will reassess the CBC in the a.m. Continue to monitor closely clinically.
[2021-01-07] MEDS ORDERED: Methylergonovine 0.2 MG/1 ML Amp IM ONE (00:45)
[2021-01-07] MEDS ORDERED: Ondansetron 4 MG Tab.DIS PO PRN (00:46)
[2021-01-07] MEDS ORDERED: Methylergonovine 0.2 MG/1 ML Amp ONE (00:49)
[2021-01-07] MEDS: Misoprostol 200 MCG Tab SCH ×3 (00:59→09:30)
[2021-01-07] MEDS: Ibuprofen 600 MG Tab PO PRN ×4 (03:12→20:00)
--- NOTE | 2021-01-07 07:35 | PCM.SN.2 ---
- Free Text/Narrative Note: Visited with patient regarding epidural experience. Patient stated that epidural "worked great". Patient denying nausea, dizziness, headache, or ringing in her ears. Patient denying signs and symptoms of infection as well. Patient complaining of very mild back discomfort at level of epidural placement. Discussed that mild discomfort is normal, similar to a bruise sensation. Reviewed with patient the signs and symptoms of a post-dural puncture headache and signs of infection. Discussed if patient develops symptoms of a post-dural puncture headache, signs of infection, or has increased back pain, patient should contact OB/Anesthesia to evaluate and treat if needed. Patient smiling and holding baby throughout visit. Ronel Arias, TANK CHARGER
--- NOTE | 2021-01-07 07:50 | PCM.SN.2 ---
- Free Text/Narrative Note: Post Progress Note PPD #1 Subjective: Doing okay overall this morning. Patient had complicated course last evening at approximately 2.5 to 3 hours after delivery where she had increased amounts of bleeding. She had a total Q BL of 1604 mL. When the patient was ambulating last evening she was having some lightheadedness and also some nausea and vomiting. She states that she has not been ambulating much overnight and has been standing by the bedside to change the pads. She states when she has been standing by the bedside it has been overall going well with may be some mild nausea overnight. Lochia minimal overnight and not requiring frequent pad changes. She states that the bleeding on the pad has been overall minimal. Voiding without difficulty. Patient has not had much to eat or drink since she was having the nausea and vomiting that would occur with standing and having the lightheadedness feeling. She states that she does feel hungry this morning and is planning on ordering breakfast in a little while. Pain controlled with oral medications. Breast-feeding with minimal difficulty. Objective: Vitals: Vital Signs - 24 hr 01/06/21 01/06/21 01/07/21 10:23 23:28 03:14 Temperature 36.6 C 36.4 C Temperature [ 36.6 C Temporal] Pulse, 52 L 50 L Peripheral Pulse, 69 Peripheral [ Pulse Oximetry] Respiratory 16 18 15 Rate Blood Pressure 135/73 133/65 Blood Pressure 119/71 [Right Upper] O2 Sat by Pulse 99 96 97 Oximetry Physical Exam General: Alert and oriented, no acute distress Lungs: Clear to auscultation bilaterally Heart: Regular rate and rhythm Abdomen: Soft, minimal appropriate tenderness, non-distended, fundus midline, nontender, and at the umbilicus Extremities: Trace edema in bilateral lower extremities to mid shins, no calf tenderness bilaterally Laboratory Results - last 24 hr 01/06/21 01/06/21 01/06/21 Range/Units 10:12 10:12 10:15 WBC 8.37 (3.98-10.04) K/mm3 RBC 3.81 L (3.98-5.22) M/mm3 Hgb 12.0 (11.2-15.7) gm/dl Hct 35.6 (34.1-44.9) % MCV 93.4 (79.4-94.8) fl MCH 31.5 (25.6-32.2) pg MCHC 33.7 (32.2-35.5) g/dl RDW Std Deviation 41.1 (36.4-46.3) fL Plt Count 215 (182-369) K/mm3 MPV 11.7 (9.4-12.3) fl Neut % (Auto) 69.6 (34.0-71.1) % Lymph % (Auto) 20.5 (19.3-51.7) % [place] % (Auto) 7.3 (4.7-12.5) % Eos % (Auto) 2.0 (0.7-5.8) Baso % (Auto) 0.2 (0.1-1.2) % Neut # (Auto) 5.82 (1.56-6.13) K/mm3 Lymph # (Auto) 1.72 (1.18-3.74) K/mm3 [place] # (Auto) 0.61 H (0.24-0.36) K/mm3 Eos # (Auto) 0.17 (0.04-0.36) K/mm3 Baso # (Auto) 0.02 (0.01-0.08) K/mm3 PT (9.7-12.0) SECONDS INR RPR Non-reactive (NONREACTIVE) SARS-CoV-2 RNA (GO) Negative (NEGATIVE) Blood Type Gel Antibody Screen Crossmatch 01/07/21 01/07/21 01/07/21 Range/Units 00:08 00:08 00:08 WBC 12.25 H (3.98-10.04) K/mm3 RBC 3.33 L (3.98-5.22) M/mm3 Hgb 10.3 L D (11.2-15.7) gm/dl Hct 31.1 L (34.1-44.9) % MCV 93.4 (79.4-94.8) fl MCH 30.9 (25.6-32.2) pg MCHC 33.1 (32.2-35.5) g/dl RDW Std Deviation 40.9 (36.4-46.3) fL Plt Count 202 (182-369) K/mm3 MPV 11.4 (9.4-12.3) fl Neut % (Auto) 78.3 H (34.0-71.1) % Lymph % (Auto) 14.4 L (19.3-51.7) % [place] % (Auto) 6.1 (4.7-12.5) % Eos % (Auto) 0.9 (0.7-5.8) Baso % (Auto) 0.1 (0.1-1.2) % Neut # (Auto) 9.59 H (1.56-6.13) K/mm3 Lymph # (Auto) 1.76 (1.18-3.74) K/mm3 [place] # (Auto) 0.75 H (0.24-0.36) K/mm3 Eos # (Auto) 0.11 (0.04-0.36) K/mm3 Baso # (Auto) 0.01 (0.01-0.08) K/mm3 PT 9.6 L (9.7-12.0) SECONDS INR < 0.93 RPR (NONREACTIVE) SARS-CoV-2 RNA (GO) (NEGATIVE) Blood Type B POSITIVE Gel Antibody Screen Negative Crossmatch See Detail 01/07/21 Range/Units 05:45 WBC 10.50 H (3.98-10.04) K/mm3 RBC 3.38 L (3.98-5.22) M/mm3 Hgb 10.5 L (11.2-15.7) gm/dl Hct 31.5 L (34.1-44.9) % MCV 93.2 (79.4-94.8) fl MCH 31.1 (25.6-32.2) pg MCHC 33.3 (32.2-35.5) g/dl RDW Std Deviation 41.0 (36.4-46.3) fL Plt Count 191 (182-369) K/mm3 MPV 11.5 (9.4-12.3) fl Neut % (Auto) 74.2 H (34.0-71.1) % Lymph % (Auto) 17.7 L (19.3-51.7) % [place] % (Auto) 6.1 (4.7-12.5) % Eos % (Auto) 1.6 (0.7-5.8) Baso % (Auto) 0.1 (0.1-1.2) % Neut # (Auto) 7.79 H (1.56-6.13) K/mm3 Lymph # (Auto) 1.86 (1.18-3.74) K/mm3 [place] # (Auto) 0.64 H (0.24-0.36) K/mm3 Eos # (Auto) 0.17 (0.04-0.36) K/mm3 Baso # (Auto) 0.01 (0.01-0.08) K/mm3 PT (9.7-12.0) SECONDS INR RPR (NONREACTIVE) SARS-CoV-2 RNA (GO) (NEGATIVE) Blood Type Gel Antibody Screen Crossmatch ASSESSMENT: 30-year-old female -0-0-4 s/p normal vaginal delivery PPD #1 with hemorrhage of 1604 mL of blood by QBL and treated with Cytotec and Methergine with uncomplicated PLAN: Doing well Continue Cytotec for last dose this morning Breast-feeding with minimal difficulty. Assist as needed Lochia minimal overnight after being treated with Cytotec and Methergine. Continue to monitor for appropriate lochia. Hemoglobin this morning was 10.5 with overall stable since last evening. Continue routine care Vital signs every 4 hours at this time as her vitals overnight have been stable Plan to reevaluate patient this afternoon to see if patient is stable for discharge later this evening. If patient is having any issues or problems we will continue to monitor patient overnight. Kashmir Batista MD 7:49 AM 01/07/2021
[2021-01-07] MEDS: Docusate Sodium 100 MG Cap PO PRN (09:31)
[2021-01-07] MEDS: Prenatal Multivitamin with Calcium/Folic Acid/Iron Tab PO SCH (09:31)
[2021-01-08] MEDS: Ibuprofen 600 MG Tab PO PRN ×2 (00:41→09:03)
[2021-01-08] MEDS: Prenatal Multivitamin with Calcium/Folic Acid/Iron Tab PO SCH (08:59)
[2021-01-08 10:55] VITALS: BP 110/79; PULSE 67
--- NOTE | 2021-01-22 09:33 | PCM.DCSUM1 ---
Discharge Summary - Hospital Course Brief History: 30 year old s/p with hemorrhage. Doing great now Diagnosis: Stroke: No - Discharge Data Discharge Date: 01/22/21 Discharge Disposition: Home, Self-Care 01 Condition: Good - Referral to Home Health Primary Care Physician: Aleks Moya MD - Patient Instructions Diet: Regular Diet as Tolerated Diet, Other: 500-700 extra calories a day for breast feeding. Activity: As Tolerated, No Lifting Over 20 Pounds Driving: May Drive Today Showering/Bathing: May Shower Notify Provider of: Fever, Increased Pain, Swelling and Redness, Nausea and/or Vomiting Other/Special Instructions: Follow up with Dr Moya in 2 weeks, call for apt. - Discharge Plan Home Medications: Home Meds Vit 90/Iron Fum/Folic [ Formula] 1 each PO DAILY 04/15/16 [History] Folic Acid 1 cap PO DAILY 01/06/21 [History] Patient Handouts: Care After Vaginal Delivery Referrals: Aleks Moya MD [Primary Care Provider] - - Discharge Summary/Plan Comment DC Time >30 min.: No - General Info Functional Status: Reports: Pain Controlled - Review of Systems General: Reports: No Symptoms HEENT: Reports: No Symptoms Pulmonary: Reports: No Symptoms Cardiovascular: Reports: No Symptoms Gastrointestinal: Reports: No Symptoms Genitourinary: Reports: No Symptoms Musculoskeletal: Reports: No Symptoms Skin: Reports: No Symptoms Neurological: Reports: No Symptoms Psychiatric: Reports: No Symptoms - Patient Data Vitals - Most Recent: Last Vital Signs Temp 36.2 C 01/08/21 09:00 Pulse 67 01/08/21 09:00 Resp 16 01/08/21 09:00 BP 110/79 01/08/21 09:00 Pulse Ox 98 01/08/21 09:00 Weight - Most Recent: 113.852 kg Med Orders - Current: Current Medications Discontinued Medications Acetaminophen (Acetaminophen 325 Mg Tab) 650 mg PO Q4H PRN PRN Reason: mild pain or fever Last Admin: 01/07/21 01:06 Dose: 650 mg Documented by: Benzocaine/Menthol (Benzocaine/Menthol 20%-0.5% [place] 56 Gm Canister) 0 gm TOP ASDIRECTED PRN PRN Reason: Perineal Comfort Measure Last Admin: 01/06/21 21:25 Dose: 1 can Documented by: Bupivacaine HCl (Bupivacaine 0.25% 10 Ml Sdv) 10 ml .ROUTE .STK-MED ONE Stop: 01/06/21 17:01 Calcium Carbonate/Glycine (Calcium Carbonate 500 Mg Tab.Chew) 1,000 mg PO Q2H PRN PRN Reason: Indigestion Last Admin: 01/06/21 19:27 Dose: 1,000 mg Documented by: Diphenhydramine HCl (Diphenhydramine 50 Mg/Ml Sdv) 25 mg IVPUSH Q6H PRN PRN Reason: pruritis Docusate Sodium (Docusate Sodium 100 Mg Cap) 100 mg PO BID PRN PRN Reason: Constipation Last Admin: 01/07/21 09:31 Dose: 100 mg Documented by: Ephedrine Sulfate (Ephedrine 50 Mg/Ml Sdv) 5 mg IVPUSH ASDIRECTED PRN PRN Reason: Hypotension Fentanyl (Fentanyl 100 Mcg/2 Ml Sdv) 100 mcg EPIDUR Q3H PRN PRN Reason: Pain Last Admin: 01/06/21 18:19 Dose: 100 mcg Documented by: Fentanyl/Bupivacaine HCl (Bupivacaine/Fentanyl/Ns 100 Ml Bag) 100 ml EPIDUR ASDIRECTED PRN PRN Reason: Pain Last Admin: 01/06/21 18:19 Dose: 100 ml Documented by: Oxytocin/Lactated Ringer's (Pitocin In Lr 10 Units/1,000 Ml) 10 unit in 1,000 mls @ 12 mls/hr IV TITRATE ANOOP; Protocol Last Titration: 01/06/21 18:00 Dose: 12 munits/min, 72 mls/hr Documented by: Oxytocin/Lactated Ringer's (Pitocin In Lr 10 Units/1,000 Ml) 10 unit in 1,000 mls @ 100 mls/hr IV .CONTINUOUS ANOOP Lactated Ringer's (Ringers, Lactated) 1,000 mls @ 100 mls/hr IV ASDIRECTED ANOOP Last Admin: 01/06/21 18:18 Dose: 100 mls/hr Documented by: Ibuprofen (Ibuprofen 600 Mg Tab) 600 mg PO Q4H PRN PRN Reason: Mild pain or fever Last Admin: 01/08/21 09:03 Dose: 600 mg Documented by: Methylergonovine Maleate (Methylergonovine 0.2 Mg/1 Ml Amp) 0.2 mg IM ONETIME ONE Stop: 01/07/21 00:46 Last Admin: 01/07/21 01:00 Dose: 0.2 mg Documented by: Methylergonovine Maleate (Methylergonovine 0.2 Mg/1 Ml Amp) Confirm Administered Dose 0.2 mg .ROUTE .STK-MED ONE Stop: 01/07/21 00:50 Last Admin: 01/07/21 01:51 Dose: Not Given Documented by: Misoprostol (Misoprostol 200 Mcg Tab) 600 mcg .XX Q3H [facility] Stop: 01/07/21 06:01 Last Admin: 01/07/21 01:52 Dose: Not Given Documented by: Misoprostol (Misoprostol 200 Mcg Tab) Confirm Administered Dose 200 mcg .ROUTE .STK-MED ONE Stop: 01/06/21 23:32 Last Admin: 01/07/21 01:51 Dose: Not Given Documented by: Misoprostol (Misoprostol 200 Mcg Tab) 600 mcg .XX Q4H [facility] Stop: 01/07/21 09:01 Last Admin: 01/07/21 09:30 Dose: 600 mcg Documented by: Nalbuphine HCl (Nalbuphine 10 Mg/1 Ml Vial) 10 mg IVPUSH Q2H PRN PRN Reason: Pain Ondansetron HCl (Ondansetron 4 Mg/2 Ml Sdv) 4 mg IVPUSH Q4H PRN PRN Reason: Nausea/Vomiting Ondansetron HCl (Ondansetron 4 Mg Tab.Dis) 4 mg PO Q4H PRN PRN Reason: Nausea/Vomiting Last Admin: 01/07/21 01:02 Dose: 4 mg Documented by: Prenat Multivit/[place]/Iron/Folic Ac ( Multivitamin With Calcium/Folic Acid/Iron Tab) 1 each PO DAILY [facility] Last Admin: 01/08/21 08:59 Dose: 1 each Documented by: Sodium Chloride (Sodium Chloride 0.9% 10 Ml Syringe) 10 ml FLUSH ASDIRECTED PRN PRN Reason: Keep Vein Open Witch Minda (Witch Minda Medicated Pads 40/Jar) 1 pad TOP ASDIRECTED PRN PRN Reason: Perineal Comfort Measure Last Admin: 01/06/21 21:24 Dose: 1 can Documented by: - Exam General: Reports: Alert, Oriented HEENT: Reports: Pupils Equal, Pupils Reactive, EOMI, Mucous Membr. Moist/[place] Neck: Reports: Supple Lungs: Reports: Clear to Auscultation Cardiovascular: Reports: Regular Rate, Regular Rhythm GI/Abdominal Exam: Normal Bowel Sounds, Soft Back Exam: Reports: Normal Inspection, Full Range of Motion Extremities: Normal Inspection, Normal Range of Motion, Non-Tender, No Pedal Edema, Normal Capillary Refill Skin: Reports: Warm, Dry, Intact Wound/Incisions: Reports: Healing Well Neurological: Reports: No New Focal Deficit Psy/Mental Status: Reports: Alert, Normal Affect, Normal Mood
== END 2021-01-08 10:00 | disposition home or self-care (01) | DRG 560 ==
LOC: JD.OB 09:51 → EDSTATUS 11:47 → OBSVTOIN 19:30 → JD.OB 19:31
PROVIDERS: ADMIT Obstetrics & Gynecology; ATTEND Obstetrics & Gynecology
PROC: 10E0XZZ Delivery of Products of Conception, External Approach (ICD-10-PCS; principal; 2021-01-06)
PROC: 10907ZC Drainage of Amniotic Fluid, Therapeutic from Products of Conception, Via Natural or Artificial Opening (ICD-10-PCS; 2021-01-06)
PROC: 3E0P7VZ Introduction of Hormone into Female Reproductive, Via Natural or Artificial Opening (ICD-10-PCS; 2021-01-06)
PROC: 3E0R3BZ Introduction of Anesthetic Agent into Spinal Canal, Percutaneous Approach (ICD-10-PCS; 2021-01-06)
PROC: 00HU33Z Insertion of Infusion Device into Spinal Canal, Percutaneous Approach (ICD-10-PCS; 2021-01-06)
DX: O99.62 Diseases of the digestive system complicating childbirth (principal); O99.214 Obesity complicating childbirth; K21.9 Gastro-esophageal reflux disease without esophagitis; Z37.0 Single live birth; Z3A.39 39 weeks gestation of pregnancy; O72.1 Other immediate postpartum hemorrhage; Z20.822 Contact with and (suspected) exposure to COVID-19
CPT/HCPCS: 01967; 36415; 51702; 59025; 59409; 85025; 85610; 86592; 86850; 86900; 86901; 86922; A9270-GY; J2210; J2590; J3010; J3490; J7120; U0002